=== PATIENT | male | born 1995 | race Caucasian/White ===

== ENCOUNTER 2020-04-11 15:07 | Emergency (ER) | payer OTHER ==
[~2020-04-11] VITALS: Ht 177.8 cm; Wt 104.5 kg
[2020-04-11 15:31] VITALS: BP 122/79
[2020-04-11] MEDS ORDERED: HYDR-4353 PO (17:05)
== END 2020-04-11 17:28 | disposition home or self-care (01) ==
LOC: ER 15:09
DX: S76.191A Other specified injury of right quadriceps muscle, fascia and tendon, initial encounter (principal); S96.891A Other specified injury of other specified muscles and tendons at ankle and foot level, right foot, initial encounter; Y93.39 Activity, other involving climbing, rappelling and jumping off; Y93.89 Activity, other specified; Y92.89 Other specified places as the place of occurrence of the external cause; Y99.8 Other external cause status
CPT/HCPCS: 29505; 73564; 73590; 99284